=== PATIENT | female | born 1955 | race Caucasian/White ===

== ENCOUNTER 2017-10-28 22:07 | Inpatient (IN) | payer OTHER ==
[~2017-10-28] VITALS: Ht 165.1 cm; Wt 51.3 kg
[2017-10-28] MEDS ORDERED: ESCI10TA PO (22:23)
[2017-10-28] MEDS ORDERED: FLUO20CA36 PO (22:23)
[2017-10-28] MEDS ORDERED: ALPR0.5T8 PO ×2 (22:23)
[2017-10-28] MEDS ORDERED: DULO30CA2 PO (22:23)
[2017-10-28] MEDS ORDERED: MAG30ORA PO (22:23)
--- NOTE | 2017-10-28 23:05 | NUR ---
Report called to ANDI Valiente. Preparing to transfer pt to the floor.
--- NOTE | 2017-10-28 23:10 | NUR ---
Pt. admitted to GPS, under care of Dr. Taylor Belongs List completed
[2017-10-28] MEDS ORDERED: MAG HYDROX/AL HYDROX/SIMETH 30 ML LIQUID UDC PO PRN (23:15)
[2017-10-28] MEDS ORDERED: ZOLPIDEM 5 MG TABLET PO PRN (23:15)
[2017-10-28] MEDS ORDERED: LORAZEPAM 0.5 MG TABLET PO PRN (23:15)
[2017-10-28] MEDS ORDERED: AMLO5TAB2 PO (23:24)
[2017-10-28] MEDS ORDERED: VALS320T2 PO (23:29)
[2017-10-28] MEDS ORDERED: SUMA100T PO (23:29)
[2017-10-28] MEDS ORDERED: ASPI-612 PO (23:29)
[2017-10-28] MEDS ORDERED: DIAZ5TAB PO (23:29)
--- NOTE | 2017-10-28 23:45 | NUR ---
AT APPROX 2315, ADMITTED 62 YEAR OLD FEMALE TO [facility] ON A 5150 HOLD FOR DTS. PER HOLD, ON 10/27/17 PATIENT WAS FOUND BY HER ROOMMATE, WHICH SHE RENTS A ROOM TO, WHO CALL 911. PATIENT WAS TEARFUL, EXPRESSING SI AND WITH DIFFERENT EMPTY PILLS BOTTLES. PATIENT THEN WAS TAKEN TO ER IN [place], WHERE SHE WAS MEDICALLY CLEARED FOR ADMISSION AND TRANSFER TO [facility] ER. PATIENT IS POSITIVE FOR [facility]. HOLD STARTED ON 10-27-17 AT 1717 AND WILL END 10/30/17 AT 1717. PATIENT WAS CALM AND COOPERATIVE AT TIME OF ADMISSION. SHE IS A/O X 3, ABLE TO AMBULATE WITH STEADY GAIT AND ABLE TO MAKE HER NEEDS KNOW. PATIENT WAS COMPLIANT WITH ADMISSION PROSSES. SHE PRESENTED WITH TANGENTIALITY, POOR INSIGHT. SHE STATED THAT "MY LEFT ME." SKIN ASSESSMENT IS WARM MOIST AND INTACT EXCEPT FOR MILD REDNESS IN PUBIS AREA. IT WAS ALSO NOTED THAT A DEFORMITY 2ND TOE OF RIGHT FOOT. WILL CONTINUE TO MONITOR. PATIENT WAS ABLE TO CFS AT THIS TIME. WILL CONTINUE TO MONITOR CLOSELY. Addendum: 10/29/17 at 0514 by ANALIA MACIAS RN PATIENT ALSO STATED THAT HER LAST ALCOHOLIC DRINK WAS 30 DAYS AGO.
[2017-10-29 00:27] VITALS: BP 0/0
--- NOTE | 2017-10-29 00:45 | NUR ---
PATIENT REQUESTED A SLEEPING PILL. AMBIEN 5MG PO PRN WAS GIVEN FOR INSOMNIA. WILL CONTINUE TO MONITOR.
[2017-10-29 04:25] LABS: *BILIRUBIN,URIN NEGATIVE (NEGATIVE); *BLOOD, URINE NEGATIVE (NEGATIVE); *CLARITY,URINE CLEAR (CLEAR); *COLOR,URINE YELLOW (YELLOW); *KETONES,URINE NEGATIVE (NEGATIVE); *PROTEIN,URINE NEGATIVE (NEGATIVE); *UROBILINOGEN,URINE 0.2 E.U./dl (NORMAL); LEUKOCYTE ESTERASE ,URINE NEGATIVE (NEGATIVE); NITRITE, URINE NEGATIVE (NEGATIVE); UGLUCOSE NEGATIVE (NEGATIVE)
[2017-10-29 04:54] LABS: BACTERIA,URINE NONE SEEN /HPF (NONE SEEN); RBC,URINE NONE SEEN /HPF (0-3); SQUAMOUS EPITHELIAL CELL,UR FEW /HPF (NONE SEEN); WBC,URINE 0-3 /HPF (0-3)
[2017-10-29] MEDS: ACETAMINOPHEN 325 MG TABLET PO PRN ×2 (06:44→16:28)
[2017-10-29 06:59] VITALS: BP 149/101
[2017-10-29] MEDS: FLUOXETINE HCL 20 MG CAPSULE PO SCH (10:39)
[2017-10-29] MEDS: ASPIRIN 325 MG TABLET PO SCH (12:10)
[2017-10-29] MEDS: VALSARTAN 160 MG TABLET PO SCH (12:10)
[2017-10-29] MEDS: ONDANSETRON HCL 4 MG TABLET PO PRN (12:10)
[2017-10-29] MEDS: AMLODIPINE 5 MG TABLET PO SCH (12:10)
--- NOTE | 2017-10-29 12:30 | NUR ---
Firearms Report: Mobile Developer completed and submitted [employer] Report on 10/29/17.
--- NOTE | 2017-10-29 15:06 | NUR ---
Initial Discharge Instructions: Patient currently lives at home with a roommate [[address] [place] [address] [address], [place] [address]; [phone]]. Pt reports that she would like to return there upon discharge. Pt is not consenting for social problems specialist to contact her friend, Bertha Majano ([phone]) at this time. SW will collaborate with pt and MD regarding appropriate discharge plans. SW will form a safe and proper discharge.
--- NOTE | 2017-10-29 15:50 | NUR ---
UR Note: Orthotic Fitter faxed clinicals to [facility] Case Management Department ([phone]), Tracking #[id number]. Awaiting authorization. SW will follow-up.
[2017-10-29] MEDS ORDERED: MAG HYDROX/AL HYDROX/SIMETH 30 ML LIQUID UDC PO SCH (17:00)
[2017-10-29] MEDS: QUETIAPINE FUMARATE 25 MG TABLET PO SCH (20:16)
--- NOTE | 2017-10-29 20:30 | NUR ---
GPS: PATIENT C/O HEADACHE 3/10 PAIN LEVEL. OFFERED TYLENOL. PATIENT REFUSED TO TAKE IT.
[2017-10-29 21:31] VITALS: BP 124/86
[2017-10-30] MEDS: ONDANSETRON HCL 4 MG TABLET PO PRN (01:23)
--- NOTE | 2017-10-30 01:24 | NUR ---
GPS: PATIENT C/O HEADACHE. TYLENOL 650 MG PO GIVEN.
--- NOTE | 2017-10-30 01:25 | NUR ---
GPS: PATIENT VOMITED SMALL AMOUNT CLEAR LIQUID, ZOFRAN 4 MG PO GIVEN FOR N/V.
[2017-10-30] MEDS: ACETAMINOPHEN 325 MG TABLET PO PRN ×2 (01:26→13:24)
--- NOTE | 2017-10-30 02:24 | NUR ---
GPS: PATIENT STATED I AM FEELING BETTER NOW. PRN EFFECTIVE.
--- NOTE | 2017-10-30 02:25 | NUR ---
GPS: PATIENT STATED I AM FEELING FINE NOW. PRN EFFECTIVE.
--- NOTE | 2017-10-30 06:38 | NUR ---
GPS: REMAIN CALM AND COOPERATIVE WITH MEDICATIONS AND CARE. SLEPT 06:05 HRS THROUGH THE NIGHT. NO MORE C/O N/V AT THIS TIME. NO BEHAVIOR PROBLEM NOTED.DENIES SI AT THIS TIME.CONTINUE MONITORING FOR SAFETY.
[2017-10-30 07:22] LABS: BASOPHILS % (AUTO) 0.2 % (0.0-2.0); EOSINOPHILS % (AUTO) 0.1 % (0.0-7.0); HEMATOCRIT 40.4 % (31.2-41.9); HEMOGLOBIN 14.4 g/dL (10.9-14.3); LYMPHOCYTES # (AUTO) 0.9 K/uL (20.0-40.0); LYMPHOCYTES % (AUTO) 13.4 % (20.5-51.5); MEAN CORPUSCULAR HEMOGLOBIN 32.3 uug (24.7-32.8); MEAN CORPUSCULAR HGB CONC 36 g/dL (32.3-35.6); MEAN CORPUSCULAR VOLUME 90.9 fL (75.5-95.3); MONOCYTES # (AUTO) 0.4 K/uL (2.0-10.0); MONOCYTES % (AUTO) 6.6 % (0.0-11.0); NEUTROPHILS # (AUTO) 5.2 K/uL (1.8-8.9); NEUTROPHILS % (AUTO) 79.7 % (38.5-71.5); PLATELET COUNT (AUTO) 353 K/uL (179-408); RED BLOOD CELL COUNT(AUTO) 4.45 MIL/uL (3.63-4.92); WHITE BLOOD COUNT (AUTO) 6.5 K/uL (3.8-11.8)
[2017-10-30 07:30] VITALS: BP 133/97
[2017-10-30] MEDS: ASPIRIN 325 MG TABLET PO SCH (08:12)
[2017-10-30] MEDS: FLUOXETINE HCL 20 MG CAPSULE PO SCH (08:12)
[2017-10-30] MEDS: VALSARTAN 160 MG TABLET PO SCH (08:13)
[2017-10-30] MEDS: AMLODIPINE 5 MG TABLET PO SCH (08:13)
[2017-10-30 15:00] VITALS: BP 115/88
[2017-10-30] MEDS ORDERED: ZOLPIDEM 5 MG TABLET PO PRN (18:15)
[2017-10-30] MEDS: QUETIAPINE FUMARATE 25 MG TABLET PO SCH (20:05)
[2017-10-30 20:10] VITALS: BP 139/84
[2017-10-31 00:10] VITALS: BP 122/88
--- NOTE | 2017-10-31 00:10 | NUR ---
GPS: PATIENT CAME TO NURSING STATION AND REQUESTED FOR SLEEPING MEDICATION TYLENOL AND ZOFRAN. PATIENT STANDING VIA NURSING STATION HOLDING ON NURSING STATION DOOR AND FAINTED. ASSISTED PATIENT ON GEI CHAIR. V/S WNL. NO C/O DIZZINESS. AMBIEN 5 MG HELD AND WASTED. PATIENT IS A/O X3 RESTING IN REMEDIOS CHAIR NEAR NURSING STATION FOR SAFETY.
[2017-10-31] MEDS: ACETAMINOPHEN 325 MG TABLET PO PRN (00:13)
--- NOTE | 2017-10-31 00:16 | NUR ---
GPS: PATIENT C/O HEADACHE. TYLENOL 650 MG PO GIVEN.
--- NOTE | 2017-10-31 01:16 | NUR ---
gps: patient stated my headache little better now. tylenol for headache effective.
--- NOTE | 2017-10-31 06:23 | NUR ---
GPS: REMAIN CALM AND COOPERATIVE WITH MEDICATIONS AND CARE. SLEPT 03:30 HRS THROUGH THE NIGHT. NO C/O PAIN OR DISCOMFORT @ THIS TIME. NO BEHAVIOR PROBLEM NOTED.DENIES SI AT THIS TIME. ASSISTED IN BED. BED ALARM ON FOR SAFETY. CONTINUE MONITORING FOR SAFETY.
[2017-10-31 07:30] VITALS: BP 142/90
[2017-10-31] MEDS: FLUOXETINE HCL 20 MG CAPSULE PO SCH (08:26)
[2017-10-31] MEDS: ASPIRIN 325 MG TABLET PO SCH (08:26)
[2017-10-31] MEDS: AMLODIPINE 5 MG TABLET PO SCH (08:27)
[2017-10-31] MEDS: VALSARTAN 160 MG TABLET PO SCH (08:27)
[2017-10-31] MEDS: MAGNESIUM HYDROXIDE 30 ML LIQUID UDC PO PRN (14:45)
[2017-10-31] MEDS: ONDANSETRON HCL 4 MG TABLET PO PRN (15:38)
[2017-10-31 16:20] VITALS: BP 144/98
[2017-10-31] MEDS: QUETIAPINE FUMARATE 25 MG TABLET PO SCH (20:28)
[2017-10-31 20:46] VITALS: BP 153/100
--- NOTE | 2017-10-31 23:30 | NUR ---
JUST WOKE UP THEN CAME TO NURSING STATION.SHE ASKED FOR THE POLICE.SHE THOUGHT THE POLICE CAME TO GET HER. REALITY ORIENTATION PROVIDED.PT WENT BACK TO HER ROOM AFTER BEING TOLD TO DO SO.NO PASSING OUT.WILL CONTINUE TO MONITOR.
[2017-11-01 07:30] VITALS: BP 148/99
[2017-11-01] MEDS: ONDANSETRON HCL 4 MG TABLET PO PRN ×2 (08:31→16:49)
[2017-11-01] MEDS: FLUOXETINE HCL 20 MG CAPSULE PO SCH (08:47)
[2017-11-01] MEDS: ASPIRIN 325 MG TABLET PO SCH (08:47)
[2017-11-01] MEDS: VALSARTAN 160 MG TABLET PO SCH (08:47)
[2017-11-01] MEDS: AMLODIPINE 5 MG TABLET PO SCH (08:48)
--- NOTE | 2017-11-01 15:45 | NUR ---
UR Note: Alteration Worker faxed clinicals to [facility] Case Management Department ([phone]), Tracking #[id number]. Awaiting authorization. SW will follow-up.
[2017-11-01] MEDS: ACETAMINOPHEN 325 MG TABLET PO PRN (16:49)
[2017-11-01 16:56] VITALS: BP 140/101
[2017-11-01 19:43] VITALS: BP 132/93
[2017-11-01] MEDS ORDERED: QUETIAPINE FUMARATE 25 MG TABLET PO SCH (21:00)
--- NOTE | 2017-11-01 21:30 | NUR ---
RECEIVED PATIENT IN THE DAY ROOM. SHE WAS HAVING A CONVERSATION WITH STAFF. SHE WAS NOTED A/O X 3. ABLE TO MAKE NEEDS KNOWN AND ABLE TO VERBALIZED FEELINGS WITH STAFF. PER INTERVIEW, PATIENT CONTINUE FIXED ON HER SEPARATION WITH HER , HER TROUBLES WITH HER ROOMATE AND MONEY ISSUES. SHE STATED. "MY LEFT ME AND HE IS NOW LIVINGS WITH ANOTHER WOMAN." "MY ROOMMATE IS POSSESSIVE". SHE WAS NOTED WITH DEPRESSED MOOD, ANXIOUS, BLUNTED AFFECT; HOWEVER, SHE DENIES SI/HI OR ANY PLAN TO HARM SELF. SHE WAS ABLE TO CONTRACT FOR SAFETY. PATIENT IS REDIRECTABLE AND COMPLIANT WITH MEDICATION REGIMENT DIET AND PLAN OF CARE AT THIS TIME. SAFETY EMPHASIS. WILL CONTINUE TO MONITOR.
[2017-11-02 07:41] VITALS: BP 139/96
[2017-11-02] MEDS: ASPIRIN 325 MG TABLET PO SCH (08:08)
[2017-11-02] MEDS: FLUOXETINE HCL 20 MG CAPSULE PO SCH (08:08)
[2017-11-02] MEDS: AMLODIPINE 5 MG TABLET PO SCH (08:09)
[2017-11-02] MEDS: VALSARTAN 160 MG TABLET PO SCH (08:09)
[2017-11-02] MEDS: MAGNESIUM HYDROXIDE 30 ML LIQUID UDC PO PRN (12:54)
[2017-11-02 16:33] VITALS: BP 142/99
[2017-11-02 20:44] VITALS: BP 121/65
[2017-11-02] MEDS ORDERED: QUETIAPINE FUMARATE 25 MG TABLET PO SCH (21:00)
[2017-11-02] MEDS ORDERED: QUETIAPINE FUMARATE 100 MG TABLET PO SCH (21:00)
--- NOTE | 2017-11-02 21:25 | NUR ---
WHILE PATIENT WAS TALKING WITH CHARGE NURSE BY THE DOOR IN HER ASSIGNED ROOM, SHE STARTED FEELING DIZZY AND WEAK. CHARGED NURSE HELP HER DOWN TO THE FLOOR. A PILLOW WAS PUT UNDER HER HEAD. VITAL SIGNS WERE TAKEN: B/P 82/61MMHG, PULSE 79BPM, RESPIRATION 18 BREATHS PER MIN. O2 SAT 98% AND ORAL TEMP OF 97.0 F. PATIENT WAS PLACED IN HER BED. FLUIDS WERE OFFERED, FEET WERE ELEVATED IN HER BED. PATIENT WAS NOTED A/O X 3 RESPONSIVE AT THIS TIME. UPON INTERVIEW, PATIENT STATED, "I FELT SICK AND DIZZY". PT'S SEROQUEL WAS INCREASED TONIGHT TO 100MG PO QHS. WILL CONTINUE TO MONITOR CLOSELY.
--- NOTE | 2017-11-02 21:35 | NUR ---
PT NOTED AWAKE A/O X 3. DENIES PAIN OR DISCOMFORT AT THIS TIME. VITAL SIGNS: B/P 113/78MMGH PULSE 68BPM. WILL CONTINUE TO MONITOR.
--- NOTE | 2017-11-02 21:45 | NUR ---
V/S 110/76; PULSE 65. PATIENT NOTED AWAKE A/O X 3 NO CHANGES IN LOC. DENIES PAIN OR DISCOMFORT. WILL CONTINUE TO MONITOR CLOSELY.
[2017-11-03 08:00] VITALS: BP 119/87
--- NOTE | 2017-11-03 08:30 | NUR ---
UR Note: Computer Repair Engineer faxed clinicals to [facility] Case Management Department ([phone]), Tracking #[id number]. Awaiting authorization. SW will follow-up.
[2017-11-03] MEDS: ASPIRIN 325 MG TABLET PO SCH (09:57)
[2017-11-03] MEDS: AMLODIPINE 5 MG TABLET PO SCH (09:59)
[2017-11-03] MEDS: FLUOXETINE HCL 20 MG CAPSULE PO SCH (09:59)
[2017-11-03] MEDS: VALSARTAN 160 MG TABLET PO SCH (10:00)
[2017-11-03] MEDS: ACETAMINOPHEN 325 MG TABLET PO PRN (10:43)
[2017-11-03 16:00] VITALS: BP 131/92
--- NOTE | 2017-11-03 16:19 | NUR ---
UR Note: Call made to [facility] Case Care Support Lead at ([phone]) requesting assigned rn case mgr to return call regarding pt's discharge disposition and home health order. School Guidance Counselor faxed clinicals to [facility] Case Management Department ([phone]), Tracking #[id number]. Awaiting authorization. SW will follow-up.
[2017-11-03 20:01] VITALS: BP 123/83
[2017-11-03] MEDS: QUETIAPINE FUMARATE 25 MG TABLET PO SCH (20:26)
[2017-11-03] MEDS ORDERED: QUETIAPINE FUMARATE 100 MG TABLET PO SCH ×2 (21:00)
[2017-11-04 07:30] VITALS: BP 130/78
[2017-11-04] MEDS: ASPIRIN 325 MG TABLET PO SCH (09:21)
[2017-11-04] MEDS: AMLODIPINE 5 MG TABLET PO SCH (09:21)
[2017-11-04] MEDS: FLUOXETINE HCL 20 MG CAPSULE PO SCH (09:22)
[2017-11-04] MEDS: VALSARTAN 160 MG TABLET PO SCH (09:22)
[2017-11-04] MEDS: ONDANSETRON HCL 4 MG TABLET PO PRN (10:34)
[2017-11-04] MEDS: MAGNESIUM HYDROXIDE 30 ML LIQUID UDC PO PRN (13:25)
--- NOTE | 2017-11-04 18:00 | NUR ---
Gps/Signal Tower Operator- Patient tend to wander around,checking doors, continue to monitor safety,needed redirections . Patient on 1:1 Nursing supervision for safety , awol risk. Alert oriented x2, forgetful, speech gets incoherent jumping from one topic to another.Compliant with her routine meds. K+ 2.9 ttoday, K-dur 40 meq. was given po. as ordered. Addendum: 11/04/17 at 1826 by FRANKY MO LVN ERROR, CHARTED ON A WRONG PATIENT/MINOO LIU
--- NOTE | 2017-11-04 18:27 | NUR ---
Gps/Formula Mixer-Attends and participates in her group therapy, redirectable, complained of being constipated, had PRN milk of magnesia, no results adequate fluid intake, c/o some nasea at ths beginning of the shift, had lemon line soda and zofran 4 mg po this am. with some relief . Verbalizing needs, cooperative with staff.
[2017-11-04 20:04] VITALS: BP 111/74
[2017-11-04] MEDS: QUETIAPINE FUMARATE 25 MG TABLET PO SCH (20:21)
--- NOTE | 2017-11-05 06:36 | NUR ---
GPS: REMAIN CALM AND COOPERATIVE WITH MEDICATIONS AND CARE.SLEPT 06:30 HRS THROUGH THE NIGHT. SHOWERED THIS MORNING. NO C/O N/V OR PAIN LAST NIGHT.CONTINUE PLAN OF CARE.
[2017-11-05 07:30] VITALS: BP 123/91
[2017-11-05] MEDS: ASPIRIN 325 MG TABLET PO SCH (08:15)
[2017-11-05] MEDS: FLUOXETINE HCL 20 MG CAPSULE PO SCH (08:15)
[2017-11-05 08:16] VITALS: BP 123/91
[2017-11-05] MEDS: AMLODIPINE 5 MG TABLET PO SCH (08:16)
[2017-11-05] MEDS: VALSARTAN 160 MG TABLET PO SCH (08:16)
--- NOTE | 2017-11-05 08:18 | NUR ---
Discharge Note: Patient will be discharged home [[address], [place] [address]; [phone]] via private transportation between 10am and 11am. Spoke with patient's friend and neighbor, Irma ([phone]) who has agreed to provide transportation and is aware and agreeable with discharge plans. Spoke with pt's friend, Brenna ([phone]) who is aware and agreeable with discharge plans. Patient is aware and agreeable with discharge plans. Patient will follow-up with her Primary Care Physician Dr. Moy Rosario [[address], [place] [address]; ] and her Psychiatrist Dr. Alex Neil [[address] [place] [address]; ]. The patient was also given a list of referrals from her Insurance for Psychiatrist outpatient follow-up. The list includes: Dr. Lee Ann Butler [[address] [place] [address]; [phone]] and Dr. Namrata Levine [[address] [place] [address]; [phone]] [place] [[address] [place] [address]; [phone]]. Convex Grinder Operator faxed Home Health Order to [employer] ([phone]). Patient was provided with caregiving referrals at her request ([facility], [facility], [facility], and [facility]). Patient was also provided with transportation resources in [facility], including [employer] ([phone]) and [employer] ([phone]). Patient was also given Mental Health Referrals to Adult Mental Health Outpatient Treatment for [facility], [facility], and [facility] ( ) and the National Suicide Prevention Lifeline ( ).
--- NOTE | 2017-11-05 10:20 | NUR ---
Gps/Lace Cutter- Patients' friend in to picking machine operator patient , reviewed medications, prescriptions, diet, safety, emphasized follow up with her Primary Medical Doctor as well as referrals made by Quality Assurance Manager. Patient verbalized understanding of the discharge instructions. All belongings given back to patient, no complaints noted. Discharged in good spirit .
== END 2017-11-05 10:20 | disposition home health service (06) | DRG 885 ==
LOC: EDBD 22:15 → ER 22:15 → GPS 23:01
PROVIDERS: ADMIT Psychiatry & Neurology Psychiatry
DX: F33.3 Major depressive disorder, recurrent, severe with psychotic symptoms (principal); F07.81 Postconcussional syndrome; Z68.1 Body mass index [BMI] 19.9 or less, adult; G43.909 Migraine, unspecified, not intractable, without status migrainosus; G47.00 Insomnia, unspecified; T42.4X2D Poisoning by benzodiazepines, intentional self-harm, subsequent encounter; T43.222D Poisoning by selective serotonin reuptake inhibitors, intentional self-harm, subsequent encounter; Z86.711 Personal history of pulmonary embolism; Z79.899 Other long term (current) drug therapy; Z87.74 Personal history of (corrected) congenital malformations of heart and circulatory system; I10 Essential (primary) hypertension; Z91.81 History of falling; R63.0 Anorexia
CPT/HCPCS: 36415; 70450; 84443; 85025; 87086; A4663; Q0162